=== PATIENT | female | born 1990 | race Caucasian/White ===

== ENCOUNTER 2018-09-30 15:30 | Emergency (ER) | payer SELFPAY ==
[2018-09-30] MEDS ORDERED: Ketorolac 30 MG/ML SDV IM ONE (16:40)
--- NOTE | 2018-09-30 16:45 | EDM.PDOC ---
ED HPI GENERAL MEDICAL PROBLEM - General Chief Complaint: ENT Problem Stated Complaint: DENTAL COMPLAINT Time Seen by Provider: 09/30/18 15:58 Source of Information: Reports: Patient, RN Notes Reviewed History Limitations: Reports: No Limitations - History of Present Illness INITIAL COMMENTS - FREE TEXT/NARRATIVE: Patient is a 28-year-old female who presents to the ED for evaluation of dental pain. She states that her roughly at 7:30 this morning she was brushing her teeth and she felt some shooting pains into her right back jaw. She initially thought these were her wisdom teeth as she knows these are impacted and needs worked on. She did take some ibuprofen today at 9:30 AM, however this has not provided much relief at all. She tried to call around to several dentists today but most of them state they will not see a patient without insurance, and or want at least half down before they see a patient, she is not in a financial situation to be doing this however. 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 She is a smoker, 2-3 cigarettes per day for roughly 10 years. With rare alcohol use and no drug use. Jaw Pain Score (Numeric/FACES): 6 - Related Data Allergies Allergy/AdvReac Type Severity Reaction Status Date / Time No Known Allergies Allergy Verified 09/30/18 15:44 Home Meds: Home Meds Acetaminophen/oxyCODONE [Percocet 325-5 MG] 1 each PO Q6H PRN #10 tab 09/30/18 [ Rx] Amoxicillin/Clavulanate K [Augmentin 875-125 MG] 1 tab PO BID #14 tablet [Rx] Etonogestrel [Nexplanon] 68 mg IMPLANT ASDIRECTED 09/30/18 [History] Past Medical History - Past Health History Medical/Surgical History: Denies Medical/Surgical History - Past Surgical History Female Surgical History: Reports: Section Other Female Surgeries/Procedures: x2 C-sections Social & Family History - Tobacco Use Smoking Status *Q: Current Every Day Smoker Years of Tobacco use: 10 Packs/Tins Daily: 0.2 - Caffeine Use Caffeine Use: Reports: Soda - Recreational Drug Use Recreational Drug Use: No ED ROS ENT - Review of Systems Review Of Systems: See Below Constitutional: Denies: Fever, Chills HEENT: Reports: Dental Pain. Denies: Throat Pain, Throat Swelling Respiratory: Reports: No Symptoms Cardiovascular: Reports: No Symptoms Endocrine: Reports: No Symptoms GI/Abdominal: Reports: No Symptoms : Reports: No Symptoms Musculoskeletal: Reports: No Symptoms Skin: Reports: No Symptoms Neurological: Reports: Headache Psychiatric: Reports: No Symptoms Hematologic/Lymphatic: Reports: No Symptoms Immunologic: Reports: No Symptoms ED EXAM, ENT - Physical Exam Exam: See Below Exam Limited By: No Limitations General Appearance: Alert, WD/WN, No Apparent Distress Eye Exam: Bilateral Eye: Normal Inspection Ears: Normal External Exam Nose: Normal Inspection Mouth/Throat: Normal Inspection, Normal Gums, Normal Lips, Normal Oropharynx, Dental Pain (dental pain noted to the molar on the lower right jaw. There is a portion of her tooth that is missing on the inferior aspect. Likely due to poor dental hygiene and dental caries.), Gum Swelling. No: Pharyngeal Erythema, Trismus Head: Atraumatic, Normocephalic Respiratory/Chest: No Respiratory Distress, Lungs Clear, Normal Breath Sounds, No Accessory Muscle Use, Chest Non-Tender Cardiovascular: Normal Peripheral Pulses, Regular Rate, Rhythm, No Murmur Neurological: Alert, Oriented, Normal Cognition, No Motor/Sensory Deficits Psychiatric: Normal Affect, Normal Mood Skin: Warm, Dry, Intact, Normal Color, No Rash Course - Vital Signs Last Recorded V/S: Last Vital Signs Temp 98 F 09/30/18 15:45 Pulse 68 09/30/18 15:45 Resp 18 09/30/18 15:45 BP 129/79 09/30/18 15:45 Pulse Ox 100 09/30/18 15:45 - Re-Assessments/Exams Free Text/Narrative Re-Assessment/Exam: 09/30/18 16:45 Patient presents to the ED for the evaluation of dental pain. I have given her a 30 mg IM shot of Toradol for pain relief, and will send her home with a prescription for antibiotics at this time. She will need to seek dental care for definitive management of her dental issue. She is understanding of this. Departure - Departure Time of Disposition: 16:46 Disposition: Home, Self-Care 01 Condition: Fair Clinical Impression: Dental caries into pulp - Discharge Information *PRESCRIPTION DRUG MONITORING PROGRAM REVIEWED*: No *COPY OF PRESCRIPTION DRUG MONITORING REPORT IN PATIENT NORM: No Prescriptions: Acetaminophen/oxyCODONE [Percocet 325-5 MG] 1 each PO Q6H PRN #10 tab PRN Reason: Pain Amoxicillin/Clavulanate K [Augmentin 875-125 MG] 1 tab PO BID #14 tablet Instructions: Diet and Dental Disease, Preventive Dental Care, Adult Referrals: PCP,None [Primary Care Provider] - Additional Instructions: You have been evaluated in the ED for your dental pain. You have been provided with a script for Augmentin. This was electronically sent to [facility] located in the [facility]. Please take this medication as directed. (1 tab twice daily for 7 days or until gone). Aleve provides good pain relief for dental pain. Please take 1-2 tabs twice daily as needed for pain. Please take the Oxycodone as prescribed over the weekend. You may obtain a product called [place]-temp, which is a dental sealant please apply this to the affected tooth to seal it off from air and otherwise. This should help provide pain relief as well. You may use hot pack/ ice packs to the affected area as tolerated in 15-20 minute intervals. You will ultimately need to find a dentist to provide definitive management of your dental pain. You may want to look into care cardiac, this is a healthcare credit card that you can take 6 months to pay them back with 0% interest. You may google this information if you are interested. This may help provide you away to pay for the dental care that you need. Please return to the ED if your symptoms change or worsen.
== END 2018-09-30 17:25 | disposition home or self-care (01) ==
LOC: JD.ED 15:30
DX: K02.9 Dental caries, unspecified (principal); F17.210 Nicotine dependence, cigarettes, uncomplicated; Z79.3 Long term (current) use of hormonal contraceptives
CPT/HCPCS: 96372; 99282; J1885; 99283